=== PATIENT | male | born 1950 | race Caucasian/White ===

== ENCOUNTER → 2018-03-18 | Outpatient (CLI) | payer OTHER, MEDICARE | LOC: BMCIMAGING 15:03 | PROVIDERS: ATTEND Orthopaedic Surgery Hand Surgery | DX: M25.811 Other specified joint disorders, right shoulder (principal) ==

== ENCOUNTER → 2018-03-30 | Outpatient (CLI) | payer OTHER, MEDICARE | LOC: FIMAGING 15:49 | PROVIDERS: ATTEND Orthopaedic Surgery Hand Surgery | DX: S46.011A Strain of muscle(s) and tendon(s) of the rotator cuff of right shoulder, initial encounter (principal); M75.21 Bicipital tendinitis, right shoulder; M12.811 Other specific arthropathies, not elsewhere classified, right shoulder ==